=== PATIENT | male | born 1955 | race Caucasian/White ===

== ENCOUNTER 2016-11-11 09:53 | Emergency (ER) | payer BC ==
[2016-11-11] MEDS ORDERED: OPTIRAY 350 100 ML VIAL HMH IV ONE (09:54)
[2016-11-11] MEDS ORDERED: ONDANSETRON 4 MG VIAL ONE (12:30)
[2016-11-11] MEDS ORDERED: KETOROLAC 30 MG/ML VIAL ONE (12:30)
[2016-11-11] MEDS ORDERED: SODIUM CHLORIDE 0.9% 1,000 ML ONE (12:30)
== END 2016-11-11 15:26 | disposition home or self-care (01) ==
LOC: ER 09:53
DX: N13.2 Hydronephrosis with renal and ureteral calculous obstruction (principal); R10.31 Right lower quadrant pain; R11.0 Nausea; R31.9 Hematuria, unspecified
CPT/HCPCS: 36415; 74177; 80053; 81001; 83690; 85025

== ENCOUNTER 2016-11-13 11:20 | Inpatient (IN) | payer BC ==
[~2016-11-13] VITALS: Ht 154.9 cm; Wt 81.6 kg
[~2016-11-13 11:20] MED LIST: FENTANYL 100 MCG/2 ML AMP ONE; GLYCOPYRROLATE 0.2 MG/ML VIAL ONE; LEVOFLOXACIN IV ONE; NEOSTIGMINE 10 MG/10 ML VIAL ONE; PROPOFOL 20 ML PER ML IV ONE; ROCURONIUM 50 MG VIAL IV ONE
[2016-11-13] MEDS: NEB-BUDESONIDE 0.5 MG INH SCH ×2 (12:44→18:43)
[2016-11-13] MEDS: NEB-BROVANA 15 MCG/2 ML INH SCH ×2 (12:44→18:43)
[2016-11-13 13:00] VITALS: BP_SYST 135; RESP 18; TEMP 97.3
[2016-11-13 13:15] VITALS: Ht 154.9 cm; Wt 81.6 kg
[2016-11-13] MEDS: LEVOTHYROXINE 0.137 MG TAB PO SCH (13:40)
[2016-11-13] MEDS: NADOLOL 20 MG TAB PO SCH ×2 (13:41→20:23)
[2016-11-13] MEDS: METFORMIN 500 MG TAB PO SCH ×2 (13:41→20:24)
[2016-11-13] MEDS: ONDANSETRON 4 MG VIAL IV PUSH PRN ×2 (14:08→20:23)
[2016-11-13] MEDS: SODIUM CHLORIDE 0.9% 1,000 ML IV SCH (14:09)
[2016-11-13] MEDS ORDERED: KETOROLAC 30 MG/ML VIAL ONE (14:35)
[2016-11-13] MEDS: KETOROLAC 15 MG/ML VIAL IV PRN (14:41)
[2016-11-13 15:00] VITALS: RESP 20
[2016-11-13] MEDS ORDERED: NEB-ALBUTEROL 2.5 MG/3 ML INH PRN (15:00)
[2016-11-13 17:16] VITALS: BP_SYST 116; RESP 18; TEMP 97.9
[2016-11-13] MEDS ORDERED: SYMBICORT 160/4.5 INHALER INH SCH (19:00)
[2016-11-13 19:48] VITALS: BP_SYST 127; RESP 20; TEMP 97.4
[2016-11-13 23:56] VITALS: BP_SYST 126; RESP 18; TEMP 98.2
[2016-11-14] VITALS (20 sets, daily range): BP systolic 112–161; RESP 12–22; TEMP 97.2–97.8
[2016-11-14] MEDS: ONDANSETRON 4 MG VIAL IV PUSH PRN (03:56)
[2016-11-14] MEDS: DILAUDID 1 MG/ML AMP IV PRN ×2 (03:56→05:13)
[2016-11-14] MEDS ORDERED: PROMETHAZINE 25 MG/ML VIAL IV ONE (05:50)
[2016-11-14] MEDS: NEB-BUDESONIDE 0.5 MG INH SCH (06:04)
[2016-11-14] MEDS: NEB-BROVANA 15 MCG/2 ML INH SCH (06:04)
[2016-11-14] MEDS: LEVOTHYROXINE 0.137 MG TAB PO SCH (06:44)
[2016-11-14] MEDS: KETOROLAC 15 MG/ML VIAL IV PRN (08:09)
[2016-11-14] MEDS: NADOLOL 20 MG TAB PO SCH (09:00)
[2016-11-14] MEDS: METFORMIN 500 MG TAB PO SCH (09:00)
[2016-11-14] MEDS: SODIUM CHLORIDE 0.9% 1,000 ML IV SCH (10:17)
[2016-11-14] MEDS ORDERED: LACT RINGERS 1,000 ML IV SCH (14:25)
[2016-11-14] MEDS ORDERED: MIDAZOLAM 2 MG/2 ML INJ IV ONE (14:25)
[2016-11-14] MEDS ORDERED: GLYCOPYRROLATE 0.2 MG/ML VIAL IV ONE (14:25)
[2016-11-14] MEDS ORDERED: DILAUDID 1 MG/ML AMP IV PRN (15:35)
[2016-11-14] MEDS ORDERED: MORPHINE 2 MG/ML SYR IV PRN (15:35)
[2016-11-14] MEDS ORDERED: OXYCODONE 5 MG TAB PO PRN (15:35)
[2016-11-14] MEDS ORDERED: MORPHINE 4 MG/ML SYR IV PRN (15:35)
[2016-11-14] MEDS ORDERED: ONDANSETRON 4 MG VIAL IV PRN (15:35)
[2016-11-14] MEDS ORDERED: ONDANSETRON 4 MG VIAL IV PUSH PRN (15:45)
[2016-11-14] MEDS ORDERED: PHENAZOPYRIDINE 100 MG TAB PO ONE (15:45)
[2016-11-14] MEDS ORDERED: NEB-RACEPINEPH 0.5 ML INH ONE (15:52)
[2016-11-14] MEDS ORDERED: NEB-RACEPINEPH 0.5 ML INH STA (15:53)
[2016-11-14] MEDS ORDERED: MIDAZOLAM 2 MG/2 ML INJ ONE (22:50)
== END 2016-11-14 19:26 | disposition home or self-care (01) | DRG 670 ==
LOC: TBA 11:46 → 3S 12:35
PROVIDERS: ADMIT Urology; ATTEND Urology
PROC: 0TC68ZZ Extirpation of Matter from Right Ureter, Via Natural or Artificial Opening Endoscopic (ICD-10-PCS; principal; 2016-11-14 14:54)
PROC: 0T768DZ Dilation of Right Ureter with Intraluminal Device, Via Natural or Artificial Opening Endoscopic (ICD-10-PCS; 2016-11-14 14:54)
DX: N20.1 Calculus of ureter (principal); I10 Essential (primary) hypertension; J44.9 Chronic obstructive pulmonary disease, unspecified; K74.60 Unspecified cirrhosis of liver; E11.9 Type 2 diabetes mellitus without complications; Z79.84 Long term (current) use of oral hypoglycemic drugs; E78.00 Pure hypercholesterolemia, unspecified; E03.9 Hypothyroidism, unspecified; K21.9 Gastro-esophageal reflux disease without esophagitis; F17.210 Nicotine dependence, cigarettes, uncomplicated; M19.90 Unspecified osteoarthritis, unspecified site; Z86.73 Personal history of transient ischemic attack (TIA), and cerebral infarction without residual deficits
CPT/HCPCS: 36415; 74000; 74177; 76000; 80053; 81001; 82947; 83690; 85025; 88300; 88360; 94640; 94799; 96361; 96374; 96375